=== PATIENT | male | born 1975 | race Caucasian/White ===

== ENCOUNTER 2016-07-20 22:23 | Emergency (ER) | payer MEDICAID ==
--- NOTE | 2016-07-20 22:30 | EDM.PDOC ---
ED HPI GENERAL MEDICAL PROBLEM - General Stated Complaint: LT ARM LAC Time Seen by Provider: 07/20/16 22:30 Source of Information: Reports: Patient History Limitations: Reports: No Limitations - History of Present Illness INITIAL COMMENTS - FREE TEXT/NARRATIVE: Patient was brought to the after falling off 30 feet from the roof. Patient endorsed that he has been drinking alcohol today but decided to climb the roof to look for any Leakages. He apparently lost his balance and Fell down. He tried breaking the Fall by attempting to hold onto the Ladder but apparently Fell off. He sustained multiple abrasions. Denied any LOC. Unsure of his Tetanus immunization. Presented to the ER on account of worsening of symptoms. He does not want any tdap at this time Onset: Today Onset Date: 07/20/16 Onset Time: 21:00 Duration: Hour(s): (occurred about 1-2 hours ago) Location: Reports: Generalized, Other (Sustained multiple abrasions on both upper and Lower extremities) Quality: Reports: Ache Severity: Moderate Context: Reports: Other (Fell from roof, 30 Feet high) Associated Symptoms: Reports: No Other Symptoms - Related Data Allergies Allergy/AdvReac Type Severity Reaction Status Date / Time No Known Allergies Allergy Verified 07/20/16 22:30 Home Meds: Home Meds NK [No Known Home Meds] 07/20/16 [History] ED ROS GENERAL - Review of Systems Review Of Systems: ROS reveals no pertinent complaints other than HPI. ED EXAM, GENERAL - Physical Exam Exam: See Below Exam Limited By: No Limitations General Appearance: Alert, WD/WN, No Apparent Distress Eye Exam: Bilateral Eye: EOMI, PERRL Ears: Normal External Exam, Normal Canal, Hearing Grossly Normal, Normal TMs Nose: Normal Inspection, Normal Mucosa Throat/Mouth: Normal Inspection Neck: Normal Inspection, Supple Respiratory/Chest: No Respiratory Distress, Lungs Clear, Other (abrasions on the left anterior chest wall) GI/Abdominal: Normal Bowel Sounds, Soft, Non-Tender, No Organomegaly, No Distention, No Abnormal Bruit Extremities: Normal Inspection, Normal Range of Motion, Non-Tender, Other ( multiple abrasions involving the upper and Lower extremities) Neurological: Alert, Oriented, CN II-XII Intact, Normal Cognition Psychiatric: Normal Affect, Normal Mood Skin Exam: Other (Multiple abrasions involving the upper and Lower extremities) Course - Vital Signs Last Recorded V/S: Last Vital Signs Temp 37.3 C 07/20/16 22:51 Pulse 123 H 07/20/16 22:51 Resp 16 07/20/16 22:51 BP 151/89 H 07/20/16 22:51 Pulse Ox 98 07/20/16 22:51 - Orders/Labs/Meds Orders: Active Orders 24 hr Category Date Time Status Cervical Spine wo Cont [CT] Stat Exams 07/20/16 22:38 Ordered Chest Abdomen Pelvis w Cont [CT] Stat Exams 07/20/16 22:39 Taken Head wo Cont [CT] Stat Exams 07/20/16 22:37 Ordered Labs: Laboratory Tests 07/20/16 07/20/16 07/20/16 Range/Units 22:35 22:35 22:35 WBC 6.6 (4.5-12.0) X10-3/uL RBC 5.01 (4.30-5.75) x10(6)uL Hgb 15.8 H (11.5-15.5) g/dL Hct 47.5 (30.0-51.3) % MCV 94.8 (80-96) fL MCH 31.5 (27.7-33.6) pg MCHC 33.2 (32.2-35.4) g/dL RDW 14.0 (11.5-15.5) % Plt Count 253 (125-369) X10(3)uL Sodium 139 (135-145) mmol/L Potassium 3.7 (3.5-5.3) mmol/L Chloride 106 (100-110) mmol/L Carbon Dioxide 25 (23-29) mmol/L BUN 12 (5-20) mg/dL Creatinine 0.9 (0.6-1.3) mg/dL Est Cr Clr Drug Dosing 120.95 mL/min Estimated GFR (MDRD) > 60 (>60) BUN/Creatinine Ratio 13.3 (9-20) Glucose 91 (80-116) mg/dL Calcium 9.1 (8.6-10.2) mg/dL Total Bilirubin 0.9 (0.1-1.3) mg/dL AST 20 (5-27) IU/L ALT 14 (14-26) IU/L Alkaline Phosphatase 47 L (56-112) IU/L Total Protein 7.5 (6.0-8.0) g/dL Albumin 4.8 (3.5-5.2) g/dL Globulin 2.7 g/dL Albumin/Globulin Ratio 1.8 Urine Opiates Screen (NEGATIVE) Ur Oxycodone Screen (NEGATIVE) Ur Propoxyphene Screen (NEGATIVE) Ur Barbituates Screen (NEGATIVE) Ur Tricyclics Screen (NEGATIVE) Ur Phencyclidine Scrn (NEGATIVE) Ur Amphetamine Screen (NEGATIVE) Urine MDMA Screen (NEGATIVE) U Benzodiazepines Scrn (NEGATIVE) U Cocaine Metab Screen (NEGATIVE) U Marijuana (THC) Screen (NEGATIVE) Ethyl Alcohol 0.16 H* (<0.01) % 07/20/16 Range/Units 23:40 WBC (4.5-12.0) X10-3/uL RBC (4.30-5.75) x10(6)uL Hgb (11.5-15.5) g/dL Hct (30.0-51.3) % MCV (80-96) fL MCH (27.7-33.6) pg MCHC (32.2-35.4) g/dL RDW (11.5-15.5) % Plt Count (125-369) X10(3)uL Sodium (135-145) mmol/L Potassium (3.5-5.3) mmol/L Chloride (100-110) mmol/L Carbon Dioxide (23-29) mmol/L BUN (5-20) mg/dL Creatinine (0.6-1.3) mg/dL Est Cr Clr Drug Dosing mL/min Estimated GFR (MDRD) (>60) BUN/Creatinine Ratio (9-20) Glucose (80-116) mg/dL Calcium (8.6-10.2) mg/dL Total Bilirubin (0.1-1.3) mg/dL AST (5-27) IU/L ALT (14-26) IU/L Alkaline Phosphatase (56-112) IU/L Total Protein (6.0-8.0) g/dL Albumin (3.5-5.2) g/dL Globulin g/dL Albumin/Globulin Ratio Urine Opiates Screen Negative (NEGATIVE) Ur Oxycodone Screen Negative (NEGATIVE) Ur Propoxyphene Screen Negative (NEGATIVE) Ur Barbituates Screen Negative (NEGATIVE) Ur Tricyclics Screen Negative (NEGATIVE) Ur Phencyclidine Scrn Negative (NEGATIVE) Ur Amphetamine Screen Negative (NEGATIVE) Urine MDMA Screen Negative (NEGATIVE) U Benzodiazepines Scrn Negative (NEGATIVE) U Cocaine Metab Screen Negative (NEGATIVE) U Marijuana (THC) Screen Negative (NEGATIVE) Ethyl Alcohol (<0.01) % Meds: Medications Discontinued Medications Generic Name Dose Route Start Last Admin Trade Name Madiq PRN Reason Stop Dose Admin Sodium Chloride 1,000 mls @ 1,000 mls/hr 07/21/16 10:00 Normal Saline IV 1000 ELLA Sodium Chloride 1,000 mls @ 999 mls/hr 07/20/16 23:25 07/20/16 23:27 Normal Saline IV 07/21/16 00:25 999 mls/hr .BOLUS ONE Administration Iopamidol 100 ml 07/20/16 22:51 07/20/16 23:10 Isovue-370 (76%) IV 07/20/16 22:52 90 ml . DIRECTED ONE Administration Departure - Departure Time of Disposition: 00:26 Disposition: Home, Self-Care 01 Clinical Impression: Abrasion, multiple sites Contusion of chest wall Qualifiers: Encounter type: initial encounter Laterality: left Qualified Code(s): S20.212A - Contusion of left front wall of thorax, initial encounter - Discharge Information Instructions: Fall Prevention in the Home, [id number] Referrals: PCP,None [Primary Care Provider] - Forms: ED Department Discharge Additional Instructions: Follow with PCP Ibuprofen for pain Return if symptoms worsen Call your Physician or Return to Emergency Department if: * Your condition worsens in any way. * You develop fever greater than 100.4. * You have vomitting that does not stop with medications. * You have pain that is not controlled with medications. - My Orders Last 24 Hours: My Active Orders 07/20/16 22:37 Head wo Cont [CT] Stat 07/20/16 22:38 Cervical Spine wo Cont [CT] Stat 07/20/16 22:39 Chest Abdomen Pelvis w Cont [CT] Stat - Assessment/Plan Last 24 Hours: My Active Orders 07/20/16 22:37 Head wo Cont [CT] Stat 07/20/16 22:38 Cervical Spine wo Cont [CT] Stat 07/20/16 22:39 Chest Abdomen Pelvis w Cont [CT] Stat
[2016-07-20] MEDS ORDERED: Iopamidol 755 Mg/ML 100 ML Bottle IV ONE (22:51)
[2016-07-20] MEDS ORDERED: Sodium Chloride 0.9% 1,000 ML IV SCH (23:21)
[2016-07-20] MEDS ORDERED: Sodium Chloride 0.9% 1,000 ML IV ONE ×2 (23:25→23:26)
[2016-07-21 00:46] VITALS: BP 148/78
[2016-07-21] MEDS ORDERED: Sodium Chloride 0.9% 1,000 ML IV SCH (10:00)
== END 2016-07-21 00:35 | disposition home or self-care (01) ==
LOC: FB.ED 22:23
DX: S20.212A Contusion of left front wall of thorax, initial encounter (principal); S80.812A Abrasion, left lower leg, initial encounter; S80.811A Abrasion, right lower leg, initial encounter; S40.812A Abrasion of left upper arm, initial encounter; S40.811A Abrasion of right upper arm, initial encounter; W13.2XXA Fall from, out of or through roof, initial encounter
CPT/HCPCS: 36415; 70450; 71260; 72125; 74177; 80053; 80305; 85027; 96360; 99284; A4217; G0480; J7040; Q9967

== ENCOUNTER 2020-11-16 15:16 | Emergency (ER) | payer OTHER ==
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
[2020-11-16 15:32] VITALS: BP 129/84; PULSE 82
[2020-11-16] MEDS ORDERED: Bacitracin Oint 1 GM U/D Packet TOP ONE (15:58)
== END 2020-11-16 16:07 ==
LOC: FB.ED 15:16
DX: S01.01XA Laceration without foreign body of scalp, initial encounter (principal); Z72.0 Tobacco use; W22.8XXA Striking against or struck by other objects, initial encounter; Y92.149 Unspecified place in prison as the place of occurrence of the external cause
CPT/HCPCS: 12002; 99283-25

== ENCOUNTER 2020-11-16 18:25 | Emergency (ER) | payer OTHER ==
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
[2020-11-16] MEDS ORDERED: Sodium Chloride 0.9% 10 ML Syringe FLUSH PRN (18:44)
[2020-11-16] MEDS ORDERED: Iopamidol 755 Mg/ML 100 ML Bottle IV ONE (20:10)
--- NOTE | 2020-11-16 20:21 | CT ---
INDICATION: Attempted hanging. CT SOFT TISSUE NECK - CT CERVICAL SPINE: Spiral 2.5 mm axial sections were obtained through the neck with 85 mL Isovue-370 at 2 mL/second with sagittal and coronal reconstructions 11/16/20 - no comparisons. TOTAL EXAM DLP: 362.84 mGy/cm. Vertebral body heights appear to be well maintained. The odontoid was intact. A definite fracture or dislocation was not identified. 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 A reversal of normal cervical lordosis is noted at C5-6 with somewhat narrowed disc spaces at C5-6 and C6-7. Hypertrophic changes are noted posteriorly at C5- 6, anteriorly and slightly posteriorly at C6-7. There are some minimal subchondral cystic changes at C6-7. The neural foramina appear to be fairly patent. There is some narrowing, however, at C6-7 on the right. Vertebral elements appear to be well aligned. Prevertebral space appeared normal. The cerebral vessels appear to be intact. Intracranial vascularity appears to be within normal limits. No shift of midline structures or ventricular abnormalities were seen on this study limited in that area. The orbits appear to be grossly intact. No definite soft tissue mass or organomegaly was identified. However, detail is somewhat limited due to lack of interstitial fat in this patient. The upper lung calvin included on this study were unremarkable. The airway appears to be intact. The thyroid cartilage and odontoid appear to be intact. IMPRESSION: 1. No definite acute fracture or dislocation. 2. 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 3. Vascularity appears to be intact. Report was called to Dr. Kasper at 1959 hours, 11/16/20. [facility]
[2020-11-17 04:18] VITALS: BP 131/79; PULSE 70
== END 2020-11-16 20:25 ==
LOC: FB.ED 18:25
DX: T71.162A Asphyxiation due to hanging, intentional self-harm, initial encounter (principal); S10.81XA Abrasion of other specified part of neck, initial encounter; S10.83XA Contusion of other specified part of neck, initial encounter; Z72.0 Tobacco use; X83.8XXA Intentional self-harm by other specified means, initial encounter
CPT/HCPCS: 70491; 99285; Q9967